=== PATIENT | female | born 1940 | race Caucasian/White ===

== ENCOUNTER 2018-09-03 17:41 | Inpatient (IN) ==
[2018-09-03] MEDS ORDERED: Ondansetron 4 MG/2 ML VIAL ONE (17:48)
[2018-09-03] MEDS ORDERED: Lidocaine 1% 20 ML MDV ID ONE (17:56)
[2018-09-03] MEDS ORDERED: *HR* FentaNYL (PF) 100 MCG/2 ML VIAL IVP ONE ×2 (18:00→19:16)
[2018-09-03] MEDS ORDERED: *HR* Propofol 200 MG/20 ML VIAL IVP ONE ×2 (18:05→19:17)
[2018-09-03] MEDS ORDERED: Ondansetron 4 MG/2 ML VIAL IVP ONE (18:08)
--- NOTE | 2018-09-03 18:13 | Emergency Department Note ---
Disposition Clinical Impression: Fracture, intertrochanteric, left femur Qualifiers: Encounter type: initial encounter Fracture type: closed Fracture alignment: displaced Qualified Code(s): S72.142A - Displaced intertrochanteric fracture of left femur, initial encounter for closed fracture Fracture of distal end of left ulna Qualifiers: Encounter type: initial encounter Fracture type: closed Fracture morphology: other fracture Qualified Code(s): S52.692A - Other fracture of lower end of left ulna, initial encounter for closed fracture Fracture of left distal radius Qualifiers: Encounter type: initial encounter Fracture type: closed Fracture morphology: Mcclure's Qualified Code(s): S52.542A - Mcclure's fracture of left radius, initial encounter for closed fracture Disposition: Admitted As Inpatient Condition: Undetermined Referrals: Oral Mesa MD [Primary Care Provider] - Forms: ED Satisfaction Letter Time of Disposition: 19:19 General Adult HPI - General Chief complaint: ED Fall Stated complaint: Fall Time Seen by Provider: 09/03/18 17:48 Source: patient, EMS Mode of arrival: EMS Limitations: no limitations Nursing Notes Reviewed: Yes Vital Signs Reviewed: Yes - History of Present Illness HPI Narrative: 78-year-old female with no previous medical history arrives to the emergency department after a mechanical fall one step. The patient return to the left w rist and hurt her wrist. Patient instructed her head with no loss of consciousness. The patient takes no anticoagulation. She is complaining of left wrist pain with a secondary deformity. Patient denies any other complaints at this time going paresthesias, abdominal pain, chest pain, difficulty breathing. The patient is lucid and answering portions appropriate. Patient denies any other complaints at this time. - Related Data Home Medications Medication Instructions Recorded Confirmed Sertraline [Zoloft] 50 mg PO DAILY 09/03/18 09/03/18 Allergies Allergy/AdvReac Type Severity Reaction Status Date / Time aspirin [ASA] AdvReac Abdominal Verified 04/19/16 20:38 Pain All systems ED: reviewed and negative except as stated. Constitutional: Denies: fever, chills, weakness ENT ED: Denies: dysphagia Cardiovascular: Denies: chest pain Respiratory: Denies: dyspnea Gastrointestinal: Denies: abdominal pain Genitourinary: Denies: urgency, dysuria Musculoskeletal: Reports: arthralgia, myalgia. Denies: back pain Integumentary: Reports: abrasion. Denies: rash Neurological: Denies: headache, numbness, paresthesias Past Medical History - Past Medical History Attestation: Yes The following information was validated with the patient. Source: patient, old records reviewed Medical history: Reports: no medical history Surgical history: Reports: non-contributory Psychiatric history: Reports: no psych history - Social History Smoking Status: Never smoker Alcohol use: Reports: none Drug use: Reports: none Physical Exam - General Limitations: no limitations General appearance: alert, in no apparent distress - Head Head exam: atraumatic, normocephalic, normal inspection - Eye Eye exam: Present: normal appearance, PERRL, EOMI - ENT ENT exam: normal exam, normal oropharynx, mucous membranes moist - Neck Neck exam: Present: normal inspection, full ROM, trachea midline - Chest Chest inspection: Present: normal inspection, symmetric chest wall rise - Respiratory Respiratory exam: Present: normal lung sounds bilaterally - Cardiovascular Cardiovascular exam: Present: regular rate, normal rhythm, normal heart sounds - Abdominal Exam Abdominal exam: Present: soft, Non-Tender. Absent: tenderness, distention, guarding, rebound, rigidity - Extremities Exam Extremities exam: Present: tenderness, normal capillary refill, other (Patient has a deformity of the left wrist with ecchymosis and swelling noted. Patient has tenderness along the left femur as well. No other acute abnormality is noted. Capillary refill less than 2 seconds. Radial pulses 2+ bilaterally.) - Neurological Exam Neurological exam: Present: alert, oriented X3, CN II-XII intact - Skin Skin exam: Present: warm, dry, intact Course - Consultations Consultation #1: I spoke with Dr. Dalton in orthopedic surgery who recommended admission to the hospitalist. See the patient consultation. No further recommend edition noted this time. Vital Signs Temperature 98.6 F 09/03/18 18:07 Pulse Rate 69 09/03/18 18:07 Respiratory Rate 20 09/03/18 18:07 Blood Pressure 147/56 09/03/18 18:07 O2 Sat by Pulse Oximetry 100 09/03/18 18:07 Temperature 98.6 F 09/03/18 18:07 Pulse Rate 67 09/03/18 19:02 Respiratory Rate 24 09/03/18 19:02 Blood Pressure 122/72 09/03/18 19:02 O2 Sat by Pulse Oximetry 100 09/03/18 19:02 Oxygen Delivery Oxygen Delivery Nasal Cannula Procedures - Orthopedic Fracture Reduction Fracture #1 Consent Obtained: written consent Time Out Performed: Yes Side: left Fracture Reduction Location: radius, ulna ASA Classification: CLASS II-Mild systemic disease Analgesia: procedural sedation Technique: direct manipulation, traction/counter-traction Post Reduction X-rays Demonstrate: acceptable reduction Post-reduction neuro exam: intact Post-reduction vascular exam: intact Splint Applied: Yes Patient Tolerated Procedure: well, no complications - Procedural Sedation Procedure: Fx reduction Indication: fracture/dislocation reduction Dietary Status: No solid food in preceding 4 hrs and no liquid in preceding 2 hrs H&P (including ROS) documented in medical record: Yes Previous reaction to sedatives/anesthetics: No Dentition: No loose teeth or bridges, full dentition Airway Assessment: Patient can open mouth completely, TMJ function normal, Micrognathia (under-bite, receding chin) absent, Neck with adequate range of motion Possible difficult airway: No ASA Classification: CLASS II-Mild systemic disease Plan of Care: Pt appropriate candidate for procedure/moderate/conscious sedation, Risks/benefits of procedure/sedation discussed w/ patient/family, If not NPO; Risk of intake outweiged by necessity to perform procedure Preparation: broom maker applied, pulse oximeter, capnometry used, sup plemental O2 applied, suction/airway equipment at bedside, IV secured IV Propofol Dose (mgs): 70 Patient Tolerated Procedure: well, no complications Complications: none Medical Decision Making - Lab Data Result diagrams: 09/03/18 18:45 Lab Results 09/03/18 09/03/18 Range/Units 18:45 18:45 WBC 8.9 (4.3-11.1) K/mcL RBC 3.84 (3.82-4.97) M/mcL Hgb 11.4 L (11.5-15.4) g/dL Hct 34.9 L (35.3-44.9) % MCV 90.9 (83.0-100.0) fL MCH 29.7 (28.0-33.3) pg MCHC 32.7 (31.6-35.5) g/dL RDW 14.6 H (11.5-14.5) % Plt Count 252 (140-400) K/mcL MPV 10.2 (9.4-12.4) fL Immature Gran % 0.5 (0-4) % Seg Neutrophils % 55.2 % Lymphocytes % 35.3 % Monocytes % 6.4 % Eosinophils % 1.6 % Basophils % 1.0 % Neutrophils # 4.9 (1.6-8.9) K/mcL Lymphocytes # 3.1 (0.6-4.6) K/mcL Monocytes # 0.6 (0.0-1.3) K/mcL Eosinophils # 0.1 (0.0-0.6) K/mcL Basophils # 0.1 (0.0-0.2) K/mcL PT 11.2 (9.4-12.1) Seconds INR 1.0
[2018-09-03 19:03] LABS: Basophils # 0.1 K/mcL (0.0-0.2); Eosinophils # 0.1 K/mcL (0.0-0.6); Eosinophils % 1.6 %; Hematocrit 34.9 % (35.3-44.9); Hemoglobin 11.4 g/dL (11.5-15.4); Immature Granulocytes % 0.5 % (0-4); Lymphocytes # 3.1 K/mcL (0.6-4.6); Lymphocytes % 35.3 %; Mean Corpuscular HGB Conc 32.7 g/dL (31.6-35.5); Mean Corpuscular Hemoglobin 29.7 pg (28.0-33.3); Mean Corpuscular Volume 90.9 fL (83.0-100.0); Mean Platelet Volume 10.2 fL (9.4-12.4); Monocytes # 0.6 K/mcL (0.0-1.3); Monocytes % 6.4 %; Neutrophils # 4.9 K/mcL (1.6-8.9); Platelet Count 252 K/mcL (140-400); Red Blood Count 3.84 M/mcL (3.82-4.97); Red Cell Distribution Width 14.6 % (11.5-14.5); Segmented Neutrophils % 55.2 %
[2018-09-03 19:11] LABS: Prothrombin Time 11.2 Seconds (9.4-12.1)
--- NOTE | 2018-09-03 19:18 | Emergency Department Note ---
Disposition Clinical Impression: Fracture, intertrochanteric, left femur, Fracture of distal end of left ulna, Fracture of left distal radius Disposition: Admitted As Inpatient Referrals: Oral Mesa MD [Primary Care Provider] - Forms: ED Satisfaction Letter General Adult HPI - General Chief complaint: ED Fall Stated complaint: Fall Time Seen by Provider: 09/03/18 17:48 Source: patient, EMS Mode of arrival: EMS Limitations: no limitations - History of Present Illness Pain Scale: 10 - Related Data Home Medications Medication Instructions Recorded Confirmed Sertraline [Zoloft] 50 mg PO DAILY 09/03/18 09/03/18 Allergies Allergy/AdvReac Type Severity Reaction Status Date / Time aspirin [ASA] AdvReac Abdominal Verified 04/19/16 20:38 Pain Constitutional: Denies: fever, chills, weakness ENT ED: Denies: dysphagia Cardiovascular: Denies: chest pain Respiratory: Denies: dyspnea Gastrointestinal: Denies: abdominal pain Genitourinary: Denies: urgency, dysuria Musculoskeletal: Reports: arthralgia, myalgia. Denies: back pain Integumentary: Reports: abrasion. Denies: rash Neurological: Denies: headache, numbness, paresthesias Past Medical History - Past Medical History Medical history: Reports: no medical history Surgical history: Reports: non-contributory Psychiatric history: Reports: no psych history - Social History Smoking Status: Never smoker Alcohol use: Reports: none Drug use: Reports: none Physical Exam - General Limitations: no limitations General appearance: alert, in no apparent distress Course Vital Signs Temperature 98.6 F 09/03/18 18:07 Pulse Rate 69 09/03/18 18:07 Respiratory Rate 20 09/03/18 18:07 Blood Pressure 147/56 09/03/18 18:07 O2 Sat by Pulse Oximetry 100 09/03/18 18:07 Temperature 98.6 F 09/03/18 18:07 Pulse Rate 67 09/03/18 19:02 Respiratory Rate 24 09/03/18 19:02 Blood Pressure 122/72 09/03/18 19:02 O2 Sat by Pulse Oximetry 100 09/03/18 19:02 Oxygen Delivery Oxygen Delivery Nasal Cannula Medical Decision Making - Medical Records Medical records reviewed: Yes I reviewed the patient's medical records. - Lab Data Lab results reviewed: Yes I reviewed the patient's lab results. Result diagrams: 09/03/18 18:45 Lab Results 09/03/18 Range/Units 18:45 WBC 8.9 (4.3-11.1) K/mcL RBC 3.84 (3.82-4.97) M/mcL Hgb 11.4 L (11.5-15.4) g/dL Hct 34.9 L (35.3-44.9) % MCV 90.9 (83.0-100.0) fL MCH 29.7 (28.0-33.3) pg MCHC 32.7 (31.6-35.5) g/dL RDW 14.6 H (11.5-14.5) % Plt Count 252 (140-400) K/mcL MPV 10.2 (9.4-12.4) fL Immature Gran % 0.5 (0-4) % Seg Neutrophils % 55.2 % Lymphocytes % 35.3 % Monocytes % 6.4 % Eosinophils % 1.6 % Basophils % 1.0 % Neutrophils # 4.9 (1.6-8.9) K/mcL Lymphocytes # 3.1 (0.6-4.6) K/mcL Monocytes # 0.6 (0.0-1.3) K/mcL Eosinophils # 0.1 (0.0-0.6) K/mcL Basophils # 0.1 (0.0-0.2) K/mcL - Radiology Data Radiology results reviewed: Yes I reviewed the patient's radiology results. Attestation Statement - Attestation Attestation: I examined this patient and my medical decision-making was reviewed with the Resident Physician. I agree with the documented findings, disposition and treatment plan as described except to the extent set forth below. 78-year-old female presents to ER for a fall. Patient was going down her basement steps when she missed the last up in the basement and fell landing on her left side injuring a left wrist and left hip. She denies any head or neck injury. She does not take blood thinners. Family members heard her and they called EMS. On exam and workup we found the patient has a comminuted fracture the distal radius and on her with significant displacement of the proximal fragments anteriorly. We were able to do a closed reduction on this without any competitions. Patient will be admitted as she also has a left trochanteric fracture. We did consult with orthopedics. We have started her preop workup flavia andrew. Procedure: Closed reduction of fracture dislocation of the left distal radius and ulna. I was able to supervise this entire procedure that was performed by Dr. Velasquez and Dr. Beasley. Patient did well. There are no complications. The volar splint was placed by the [facility]. Patient was neurovascular intact after splint placement.
[2018-09-03 19:20] LABS: BUN/Creatinine Ratio 22 (6-26); Blood Urea Nitrogen 15 mg/dL (8-23); Calcium 9.6 mg/dL (8.6-10.3); Carbon Dioxide 21 mEq/L (23-29); Chloride 106 mEq/L (98-107); Glucose 146 mg/dL (70-105); Osmolality,Calculated 289 (280-300); Potassium 3.8 mEq/L (3.5-5.1); Sodium 138 mEq/L (136-145); eGFR For Non-African Americans > 60 (> 60)
[2018-09-03 20:11] LABS: Bilirubin,Urine Negative (Negative); Blood,Urine Negative (Negative); Clarity,Urine Clear (Clear); Color,Urine Yellow (Yellow); Glucose,Urine (UA) Normal (Normal); Ketones,Urine 15 mg/dL (Negative); Leukocyte Esterase,Urine Negative (Negative); Nitrite,Urine Negative (Negative); PH,Urine 6.5 pH Units (5.0-8.0); Protein,Urine Negative (Neg-Trace); Specific Gravity,Urine 1.016 (1.010-1.025); Urobilinogen,Urine Normal (Normal)
[2018-09-04] MEDS ORDERED: Acetaminophen IV 500 MG/50 ML INFUS..BTL IVPB ONE (00:25)
[2018-09-04] MEDS ORDERED: Naloxone 0.4 MG/ML INJ IVP PRN ×2 (00:29→17:17)
[2018-09-04] MEDS: OXYCODONE Oral CONC 10 MG/0.5 ML ORAL.SYG SL PRN ×3 (00:57→22:01)
--- NOTE | 2018-09-04 01:55 | Internal Med History&Physical ---
Date of Encounter: 09/03/18 Time of Encounter: 23:30 Internal Medicine - H&P: HPI Chief complaint: Fall Admitted From: Home Plans for Post Hospital Care: Home History of present illness: Ms. Cummins is a 78 year old female with past medical history significant for acid reflux, left retinal artery occlusion, and anxiety who presents following mechanical fall at home while going down stairs and tripping on last step fal ling down a total of 1 stair. Did not strike head or lose consciousness. No anticoagulation use. Immediately had pain to left wrist and left leg following fall and was unable to ambulate due to the pain. Denies any other injury. Denies headache, dizziness, chest pain, shortness of breath, abdominal pain, numbness, tingling, bowel or bladder changes. ER obtained xrays of pelvis, left femur, left wrist, and left forearm which showed intertrochanteric fracture of the proximal left femur with mild foreshortening and comminution, and severely comminuted displaced foreshortened and angulated fractures of the distal left radius and ulna. A chest xray was also completed which showed no acute cardiopulmonary findings. ER consulted construction project mgr orthopedic Dr Dalton who agrees to see patient in consult in the morning. ER also completed closed reduction of fracture dislocation of the left radius and ulna in the ED. Patient is now pain free in left wrist following reduction but continues to have pain in left leg with movement. Patient follows regularly with PCP every six months and is due to see again in December. Lives at home with her and is very functional and independent as she helps care for him due to his history of stroke. Denies any other recent falls. Past Med Surg Social Fam HX - Past Medical History Additional medical history: acid reflux, retinal artery occlusion Psychiatric history: anxiety - Past Surgical History Surgical History: non-contributory Additional surgical history: benign breast tumor removed x2 - Social History Smoking Status: Never smoker Alcohol use: none Drug use: none - Family History Brother Hx Family Cancer: Yes Sister Living Status: Hx Family Respiratory Disorders: Yes (COPD) Internal Medicine - H&P: Meds Sertraline [Zoloft] 50 mg PO DAILY 09/03/18 [History] Allergy/AdvReac Type Severity Reaction Status Date / Time aspirin [ASA] AdvReac Abdominal Verified 04/19/16 20:38 Pain All Systems PM: A 10-system review of systems was performed and is negative for pertinent findings except as documented above in the HPI. - Constitutional Vitals: Temp Pulse Resp BP Pulse Ox 98.3 F 63 17 146/76 96 09/03/18 22:47 09/03/18 22:47 09/03/18 22:47 09/03/18 22:47 09/03/18 22:47 Exam: General: Alert and oriented. Skin:Normal color, no rash, no lesions. HEENT:Pupils equal, round and reactive. Cardiovascular:Normal S1 & S2, no rubs, murmurs or gallops. No JVD. Pulse regular. Lungs:Normal breath sounds, no wheezes or crackles. Abdomen:Soft, non-tender, no rigidity. Extremities:No edema, joint swelling, or clubbing. Tenderness to left lower extremity with movement, PMS intact. Left arm immobilized in sling and unable to assess wrist, motor and sensory intact with normal capillary refill. Neurological:Normal cognition and motor skills. Pulses:Carotid and radial pulses normal +2. Rest of the physical exam is non contributory. Internal Med - H&P Results - Labs CBC & Chem 7: 09/03/18 18:45 09/03/18 18:45 Labs: Short CBC 09/03/18 Range/Units 18:45 WBC 8.9 (4.3-11.1) K/mcL Hgb 11.4 L (11.5-15.4) g/dL Hct 34.9 L (35.3-44.9) % Plt Count 252 (140-400) K/mcL Neutrophils # 4.9 (1.6-8.9) K/mcL BMP 09/03/18 18:45 Sodium 138 Potassium 3.8 Chloride 106 Carbon Dioxide 21 L BUN 15 Creatinine 0.69 Glucose 146 H Calcium 9.6 Urine 09/03/18 Range/Units 19:50 Urine Color Yellow (Yellow) Urine Clarity Clear (Clear) Urine pH 6.5 (5.0-8.0) pH Units Ur Specific [place] 1.016 (1.010-1.025) Urine Protein Negative (Neg-Trace) mg/dL Urine Glucose (UA) Normal (Normal) mg/dL - Impressions ITS Impressions Forearm X-Ray 09/03/18 00:00 IMPRESSION: Intertrochanteric fracture of the proximal left femur with mild foreshortening and comminution. Severely comminuted displaced foreshortened and angulated fractures of the distal left radius and ulna. Given the severity of the findings, recommend thorough neurovascular evaluation of the left hand. Orthopedic consultation is recommended. D/ : / 09/03/2018 18:36:07 Aj Whitaker MD / moe Interpreting Provider: Aj Whitaker MD Femur X-Ray 09/03/18 17:49 IMPRESSION: Intertrochanteric fracture of the proximal left femur with mild foreshortening and comminution. Severely comminuted displaced foreshortened and angulated fractures of the distal left radius and ulna. Given the severity of the findings, recommend thorough neurovascular evaluation of the left hand. Orthopedic consultation is recommended. D/ : / 09/03/2018 18:36:07 Aj Whitaker MD / moe Interpreting Provider: Aj Whitaker MD Pelvis X-Ray 09/03/18 17:49 IMPRESSION: Intertrochanteric fracture of the proximal left femur with mild foreshortening and comminution. Severely comminuted displaced foreshortened and angulated fractures of the distal left radius and ulna. Given the severity of the findings, recommend thorough neurovascular evaluation of the left hand. Orthopedic consultation is recommended. D/ : / 09/03/2018 18:36:07 Aj Whitaker MD / moe Interpreting Provider: Aj Whitaker MD Wrist X-Ray 09/03/18 17:49 IMPRESSION: Intertrochanteric fracture of the proximal left femur with mild foreshortening and comminution. Severely comminuted displaced foreshortened and angulated fractures of the distal left radius and ulna. Given the severity of the findings, recommend thorough neurovascular evaluation of the left hand. Orthopedic consultation is recommended. D/ / 09/03/2018 18:36:07 Aj Whitaker MD / moe Interpreting Provider: Aj Whitaker MD Chest X-Ray 09/03/18 18:43 IMPRESSION: No acute cardiopulmonary findings. D/ / Rigoberto Teixeira / Rigoberto Teixeira Interpreting Provider: Rigoberto Teixeira - Assessment and Plan (1) Fracture of distal end of left ulna Current Visit: Yes Status: Acute Assessment and plan: Orthopedics consulted by ER, will see patient in a.m. Fracture reduced, splint placed and in sling. Pain control with PRN pain medications. NPO. Qualifiers: Encounter type: initial encounter Fracture type: closed Fracture morphology: other fracture Qualified Code(s): S52.692A - Other fracture of lower end of left ulna, initial encounter for closed fracture (2) Fracture of left distal radius Current Visit: Yes Status: Acute Assessment and plan: Orthopedics consulted by ER, will see patient in a.m. Fracture reduced, splint placed and in sling. Pain control with PRN pain medications. NPO. Qualifiers: Encounter type: initial encounter Fracture type: closed Fracture m orphology: unspecified fracture morphology Qualified Code(s): S52.502A - Unspecified fracture of the lower end of left radius, initial encounter for closed fracture (3) Fracture, intertrochanteric, left femur Current Visit: Yes Status: Acute Assessment and plan: Orthopedics consulted by ER, will see patient in a.m. Pain control with PRN pain medications. NPO. Qualifiers: Encounter type: initial encounter Fracture type: closed Qualified Code(s): S72.142A - Displaced intertrochanteric fracture of left femur, initial encounter for closed fracture (4) Fall Current Visit: Yes Status: Acute Assessment and plan: Mechanical fall on last step of stairway. No loss of consciousness, did not strike head. Denies any other injury than left wrist and left leg. Plan as stated above. Qualifiers: Encounter type: initial encounter Qualified Code(s): W19.XXXA - Unspecified fall, initial encounter (5) Decreased hemoglobin Current Visit: Yes Status: Acute Assessment and plan: Minimally decreased. Repeat labs in a.m. - Time Spent With Patient Total time spent is greater than 50% in coordination of care (as documented) at patient's floor/unit and/or counseling patient:
[2018-09-04 04:29] LABS: Basophils % 0.2 %; Hematocrit 33.6 % (35.3-44.9); Hemoglobin 10.8 g/dL (11.5-15.4); Immature Granulocytes % 0.4 % (0-4); Lymphocytes # 0.9 K/mcL (0.6-4.6); Lymphocytes % 8.9 %; Mean Corpuscular HGB Conc 32.1 g/dL (31.6-35.5); Mean Corpuscular Hemoglobin 29.3 pg (28.0-33.3); Mean Corpuscular Volume 91.3 fL (83.0-100.0); Mean Platelet Volume 9.8 fL (9.4-12.4); Monocytes # 0.5 K/mcL (0.0-1.3); Monocytes % 5.2 %; Neutrophils # 8.7 K/mcL (1.6-8.9); Platelet Count 208 K/mcL (140-400); Red Blood Count 3.68 M/mcL (3.82-4.97); Red Cell Distribution Width 14.5 % (11.5-14.5); Segmented Neutrophils % 85.3 %
[2018-09-04 04:45] LABS: BUN/Creatinine Ratio 23 (6-26); Blood Urea Nitrogen 15 mg/dL (8-23); Calcium 9.4 mg/dL (8.6-10.3); Carbon Dioxide 24 mEq/L (23-29); Chloride 105 mEq/L (98-107); Glucose 150 mg/dL (70-105); Osmolality,Calculated 290 (280-300); Potassium 3.7 mEq/L (3.5-5.1); Sodium 138 mEq/L (136-145); eGFR For Non-African Americans > 60 (> 60)
--- NOTE | 2018-09-04 07:01 | Orthopedic Consult Note ---
Date of Encounter: 09/04/18 Time of Encounter: 06:58 Assessment and Plan (1) Fracture, intertrochanteric, left femur Current Visit: Yes Status: Acute I did have a long discussion with the patient regarding the diagnosis. She does have a left displaced wrist fracture involving the distal radius and distal ulna. My recommendation is for open reduction and internal fixation at least of the distal radius. I do not anticipate fixing the ulna unless there is significant displacement or instability after fixing the radius. Regarding the left hip my recommendation is for reduction and medullary nail fixation in order to reduce and stabilize the left hip to allow for early mobilization and to help facilitate nursing care and provide pain control. The risks discussed included but were not limited to stiffness, bleeding, infection, blood clots, damage to neurovascular structures, tendons, ligaments, and bone. Also discussed was the risk of continued symptoms and possible need for further procedures. I did discuss the anesthesia risks including stroke, heart attack, and . I did discuss the reasonable, foreseeable postoperative course with the patient. The patient did wish to proceed and consent was obtained. I have reviewed each of the pertinent components of this chart and any other pertinent medical component(s) including but not limited to pertinent application of the chief complaint, history of present illness, current medic ation, medical history, allergies, family history, medical history, surgical history, social history, review of systems, vital signs, and any other portion of the pertinent patient medical record directly or indirectly involved with this patient care that is pertinent based on my medical decision process. MARQUITA Rapp Qualifiers: Encounter type: initial encounter Fracture type: closed Qualified Code(s): S72.142A - Displaced intertrochanteric fracture of left femur, initial encounter for closed fracture History of Present Illness HPI: Ms. Cummins is a 78 year old female currently admitted to the hospitalist. She did have a fall downstairs yesterday and sustained a left distal radius fracture, distal ulna fracture, and left basicervical hip fracture. At baseline she is quite functional and ambulate without a walker. She is quite active without significant medical comorbidity. She complains of isolated pain to the left hip and minimal achy and sharp pains of the left wrist. She underwent closed reduction of left wrist in the emergency department. Pain at the left hip and left wrist are worse with use and movement of his extremities and better with rest. She denies any numbness, tingling, or any other associated signs or symptoms. She denies any other pain or injuries. No other modifying factors. Past Med Surg Social Fam HX - Past Medical History Medical history: no medical history Additional medical history: acid reflux, retinal artery occlusion Psychiatric history: anxiety - Past Surgical History Surgical History: non-contributory Additional surgical history: benign breast tumor removed x2 - Social History Smoking Status: Never smoker Alcohol use: none Drug use: none - Family History Brother Hx Family Cancer: Yes Sister Living Status: Hx Family Respiratory Disorders: Yes (COPD) Medications and Allergies Sertraline [Zoloft] 50 mg PO DAILY 09/03/18 [History] Allergy/AdvReac Type Severity Reaction Status Date / Time aspirin [ASA] AdvReac Abdominal Verified 04/19/16 20:38 Pain All Systems Reviewed: Constitutional -The patient denies any fevers, chills, or feelings of illness Neurologic -The patient denies any numbness, tingling, or burning pains Physical Exam - Constitutional Vitals: Temp Pulse Resp BP Pulse Ox 98.2 F 71 16 99/57 94 09/04/18 03:08 09/04/18 03:08 09/04/18 03:08 09/04/18 03:08 09/04/18 03:08 Constitutional -Vitals reviewed -The patient is well developed and well nourished. -Mood is pleasant. -The patient is well groomed. Psychiatric -The patient is fully alert and oriented x 3. Respiratory: -Respiratory effort normal Abdomen: -Soft abdomen -Non tender -Non distended: Left upper extremity: -Sugar tong splint in place -Fingers distal to the splint are freely mobile, sensate, and well-perfused. -No pain with active or passive motion of the shoulder or the elbow. Right upper extremity: -No deformities. The overlying skin is intact. No obvious signs of acute trauma. -No tenderness to palpation throughout. -No significant pain with passive motion of the shoulder, elbow, wrist, and fingers within the limits of the bed. -Able to make an "OK" sign, cross the index and long fingers, and extend the thumb. -Sensation grossly intact to light touch throughout the median, radial, and ul michelle distributions. -Radial pulse is present; Fingers have good capillary refill. Left lower extremity: -The extremity is shortened and externally rotated. The overlying skin is intact. -There is tenderness in the groin region as well as the proximal lateral thigh. -I did not range the hip due to the known fracture. -No tenderness along the distal thigh, leg, ankle, foot, or toes. -Able to dorsiflex and plantarflex the ankle and toes. -Sensation is grossly intact to light touch throughout the sural, saphenous, superficial peroneal, and deep peroneal distributions. -Toes have good capillary refill. Right lower extremity: -No deformities. The overlying skin is intact. No obvious signs of acute trauma. -No tenderness to palpation throughout. -No pain with passive motion of the hip, knee, ankle, and toes within the limits of the bed. -No pain with axial loading of the thigh. -Able to dorsiflex and plantarflex the ankle and toes. -Sensation is grossly intact to light touch throughout the sural, saphenous, superficial peroneal, and deep peroneal distributions. -Toes have good capillary refill. Diagnostic Imaging: I did personally review and interpret x-rays of the left wrist, forearm, pelvis and femur which demonstrated a significantly displaced distal radius fracture with a minimally displaced distal ulna fracture. She also has a left basicervical femoral neck fracture. Results - Labs Result Diagrams: 09/04/18 03:53 09/04/18 03:53 Labs: Abnormal lab results RBC 3.68 M/mcL (3.82-4.97) L 09/04/18 03:53 Hgb 10.8 g/dL (11.5-15.4) L 09/04/18 03:53 Hct 33.6 % (35.3-44.9) L 09/04/18 03:53 Glucose 150 mg/dL (70-105) H 09/04/18 03:53 Urine Ketones 15 mg/dL (Negative) H 09/03/18 19:50 H & H 09/03/18 09/04/18 Range/Units 18:45 03:53 Hgb 11.4 L 10.8 L (11.5-15.4) g/dL Hct 34.9 L 33.6 L (35.3-44.9) % All other labs normal. Consult Discharge Plan - Plan Referrals: Oral Mesa MD [Primary Care Provider] -
[2018-09-04] MEDS ORDERED: *HR* FentaNYL (PF) 100 MCG/2 ML VIAL IVP PRN ×2 (13:02→17:17)
[2018-09-04] MEDS ORDERED: Bupivacaine/EPI 1:200k 0.5%PF 10 ML VIAL ONE (13:45)
--- NOTE | 2018-09-04 13:49 | Anesthesia Evaluation PreOp ---
Date of Encounter: 09/04/18 Time of Encounter: 14:16 - Past History Planned Operation: Left hip TFN, Left wrist ORIF Cardiac History: Denies any Significant Hx Pulmonary History: Denies Any Significant HX, Other (stop-bang score = 1) MECHANICAL SERVICE REPRESENTATIVE History: Other (anxiety) Other Medical History: GERD, Other (retinal artery occlusion) Anesthesia History: No Prior Anesthetic Complications, Past Anesthesia (breast biopsies) Alcohol Use: none Drug use: none Medications and Allergies Sertraline [Zoloft] 50 mg PO DAILY 09/03/18 [History] Aspirin [Lo-Dose Aspirin EC] 81 mg PO QPM 09/04/18 [History] Cholecalciferol (D-3) [Vitamin D] 1,000 unit PO DAILY 09/04/18 [History] Allergy/AdvReac Type Severity Reaction Status Date / Time aspirin [ASA] AdvReac See Verified 09/04/18 08:53 Comments - Meds/Allergy Pre-op Review Medications Reviewed: Yes Allergies Reviewed: Yes Beta Blockers on Current Med List: No Anesthesia Results - Labs 09/04/18 03:53 09/04/18 03:53 Anesthesia Exam Last Vital Signs Temp 99.0 F 09/04/18 10:18 Pulse 66 09/04/18 10:18 Resp 14 09/04/18 10:18 BP 110/66 09/04/18 10:18 Pulse Ox 93 09/04/18 10:18 Weight: 56 kg NPO (# of Hours): > 8 hrs - HEENT Pupil (Motor): Pupils equal, EOMI Mallampati: II Teeth: Normal Oral Opening: Greater than 3 - MECHANICAL SERVICE REPRESENTATIVE LOC: Oriented - Cardiac Rhythm: Regular Murmur: None - Pulmonary Breath Sounds: bilateral Clear Respiratory Effort: Symmetrical Anesthesia Assess/Plan ASA Score: 2 Level of consciousness: Cooperative Anesthetic Plan: General Monitoring Plan: Standard Monitors Recovery Plan: PACU
[2018-09-04] MEDS ORDERED: *HR* PHENYLEPHRINE 1,000 MCG/10 ML SYRINGE IVP ONE (13:59)
[2018-09-04] MEDS ORDERED: Lidocaine -MPF 2% 2 ML VIAL ONE (14:00)
[2018-09-04] MEDS ORDERED: *HR* FentaNYL (PF) 100 MCG/2 ML VIAL ONE ×2 (14:00→15:34)
[2018-09-04] MEDS ORDERED: *HR* Propofol 200 MG/20 ML VIAL IVP ONE (14:00)
[2018-09-04] MEDS ORDERED: *HR* OxyCODONE Immed Rel 5 MG TABLET PO PRN ×2 (14:17→17:17)
[2018-09-04] MEDS ORDERED: EPHEDrine 50 MG/ML VIAL ONE (14:43)
--- NOTE | 2018-09-04 15:44 | Internal Med Progress Note ---
Hospitalist Progress Note - Encounter Date of Encounter: 09/04/18 Time of Encounter: 15:43 - Subjective Interval History: Pt stated that she has pain of the left leg when move, I told her do not move the left leg until after the srugery. - Exam Vitals: Temp Pulse Resp BP Pulse Ox 99.0 F 66 14 110/66 93 09/04/18 10:18 09/04/18 10:18 09/04/18 10:18 09/04/18 10:18 09/04/18 10:18 Exam: General: Alert and oriented. Skin:Normal color, no rash, no lesions. HEENT:Pupils equal, round and reactive. Cardiovascular:Normal S1 & S2, no rubs, murmurs or gallops. No JVD. Pulse regular. Lungs:Normal breath sounds, no wheezes or crackles. Abdomen:Soft, non-tender, no rigidity. Extremities:No edema, joint swelling, or clubbing. Tenderness to left lower extremity with movement, PMS intact. Left arm immobilized in sling and unable to assess wrist, motor and sensory intact with normal capillary refill. Neurological:Normal cognition and motor skills. Pulses:Carotid and radial pulses normal +2. Rest of the physical exam is non contributory. - Summary of Assessment and Plan Summary of Assessment and Plan: 1) Fracture of distal end of left ulna Current Visit: Yes Status: Acute Assessment and plan: Orthopedics consulted by ER, will see patient in a.m. Fracture reduced, splint placed and in sling. Pain control with PRN pain medications. NPO. Qualifiers: Encounter type: initial encounter Fracture type: closed Fracture morphology: other fracture Qualified Code(s): S52.692A - Other fracture of lower end of left ulna, initial encounter for closed fracture (2) Fracture of left distal radius Current Visit: Yes Status: Acute Assessment and plan: Orthopedics consulted by ER, will see patient in a.m. Fracture reduced, splint placed and in sling. Pain control with PRN pain medications. NPO. Qualifiers: Encounter type: initial encounter Fracture type: closed Fracture morphology: unspecified fracture morphology Qualified Code(s): S52.502A - Unspecified fracture of the lower end of left radius, initial encounter for closed fracture (3) Fracture, intertrochanteric, left femur Current Visit: Yes Status: Acute Assessment and plan: Orthopedics consulted by ER, will see patient in a.m. Pain control with PRN pain medications. NPO. Qualifiers: Encounter type: initial encounter Fracture type: closed Qualified Code(s): S72.142A - Displaced intertrochanteric fracture of left femur, initial encounter for closed fracture (4) Fall Current Visit: Yes Status: Acute Assessment and plan: Mechanical fall on last step of stairway. No loss of consciousness, did not strike head. Denies any other injury than left wrist and left leg. Plan as stated above. Qualifiers: Encounter type: initial encounter Qualified Code(s): W19.XXXA - Unspecified fall, initial encounter (5) Decreased hemoglobin Current Visit: Yes Status: Acute Assessment and plan: Minimally decreased. Repeat labs in a.m. - Time Spent with Patient Total time spent is greater than 50% in coordination of care (as documented) at patient's floor/unit and/or counseling patient: Internal Medicine: Result - Labs CBC & Chem 7: 09/04/18 03:53 09/04/18 03:53 Labs: Short CBC 09/03/18 09/04/18 Range/Units 18:45 03:53 WBC 8.9 10.2 (4.3-11.1) K/mcL Hgb 11.4 L 10.8 L (11.5-15.4) g/dL Hct 34.9 L 33.6 L (35.3-44.9) % Plt Count 252 208 (140-400) K/mcL Neutrophils # 4.9 8.7 (1.6-8.9) K/mcL BMP 09/03/18 09/04/18 18:45 03:53 Sodium 138 138 Potassium 3.8 3.7 Chloride 106 105 Carbon Dioxide 21 L 24 BUN 15 15 Creatinine 0.69 0.66 Glucose 146 H 150 H Calcium 9.6 9.4 Urine 09/03/18 Range/Units 19:50 Urine Color Yellow (Yellow) Urine Clarity Clear (Clear) Urine pH 6.5 (5.0-8.0) pH Units Ur Specific [place] 1.016 (1.010-1.025) Urine Protein Negative (Neg-Trace) mg/dL Urine Glucose (UA) Normal (Normal) mg/dL - ABG Interpretation ABG results: PT/INR, D-dimer PT 11.2 Seconds (9.4-12.1) 09/03/18 18:45 - Impressions Impressions Forearm X-Ray 09/03/18 00:00 IMPRESSION: Intertrochanteric fracture of the proximal left femur with mild foreshortening and comminution. Severely comminuted displaced foreshortened and angulated fractures of the distal left radius and ulna. Given the severity of the findings, recommend thorough neurovascular evaluation of the left hand. Orthopedic consultation is recommended. D/ : / 09/03/2018 18:36:07 Aj Whitaker MD / moe Interpreting Provider: Aj Whitaker MD Femur X-Ray 09/03/18 17:49 IMPRESSION: Intertrochanteric fracture of the proximal left femur with mild foreshortening and comminution. Severely comminuted displaced foreshortened and angulated fractures of the distal left radius and ulna. Given the severity of the findings, recommend thorough neurovascular evaluation of the left hand. Orthopedic consultation is recommended. D/ : / 09/03/2018 18:36:07 Aj Whitaker MD / moe Interpreting Provider: Aj Whitaker MD Pelvis X-Ray 09/03/18 17:49 IMPRESSION: Intertrochanteric fracture of the proximal left femur with mild foreshortening and comminution. Severely comminuted displaced foreshortened and angulated fractures of the distal left radius and ulna. Given the severity of the findings, recommend thorough neurovascular evaluation of the left hand. Orthopedic consultation is recommended. D/ : / 09/03/2018 18:36:07 Aj Whitaker MD / moe Interpreting Provider: Aj Whitaker MD Wrist X-Ray 09/03/18 17:49 IMPRESSION: Intertrochanteric fracture of the proximal left femur with mild foreshortening and comminution. Severely comminuted displaced foreshortened and angulated fractures of the distal left radius and ulna. Given the severity of the findings, recommend thorough neurovascular evaluation of the left hand. Orthopedic consultation is recommended. D/ / 09/03/2018 18:36:07 Aj Whitkaer MD / moe Interpreting Provider: Aj Whitaker MD Chest X-Ray 09/03/18 18:43 IMPRESSION: No acute cardiopulmonary findings. D/ / Rigoberto Teixeira / Rigoberto Teixeira Interpreting Provider: Rigoberto Teixeira Fluoroscopy 09/04/18 14:35 IMPRESSION: Intraoperative imaging for ORIF of a left femoral intertrochanteric fracture without complication. D/ / Fadi Mcclure MD / Fadi Mcclure MD Interpreting Provider: Fadi Mcclure MD Consult Discharge Plan - Plan Referrals: Oral Mesa MD [Primary Care Provider] -
--- NOTE | 2018-09-04 17:25 | Electrocardiograph Report ---
[address] [place], [place] [address] Test Date: 2018-09-03 Pat Name: Pippa Cummins Department: [id number] Room: [facility] Gender: F Medical Records Director: : 1940 Requested By: Orville Mcclure Order Number: [id number] Reading MD: Noreen Bland Measurements Intervals [place] Rate: 55 P: 96 [place]: 191 QRS: 88 QRSD: 90 T: 85 QT: 468 QTc: 448 Interpretive Statements Sinus rhythm Borderline right axis deviation Electronically Signed On 09-04-2018 17:23:45 EDT by Noreen Bland
--- NOTE | 2018-09-04 18:15 | Orthopedic Operative Note ---
Date of procedure: 09/04/18 Procedure: OPERATIVE REPORT SURGEON: Brandon Davis MD PREOPERATIVE DIAGNOSIS: Left basicervical femoral neck fracture and left extra articular distal radius fracture POSTOPERATIVE DIAGNOSIS: Same PROCEDURE: Left hip nailing and open reduction and internal fixation of left distal radius ANESTHESIA: General anesthesia SPECIMENS: No specimens IMPLANTS: Synthes short TFN measuring 11 mm x 130 degrees; Skeletal Dynamics Geminus volar locking distal radius plate PREOPERATIVE NOTE The surgical plan was reviewed with the patient. The risks, benefits, alternatives, and potential complications of this procedure were discussed with the patient including injury to veins, arteries, nerves, tendons, ligaments, and bone. Also discussed were the risks of infection, bleeding, pain, blood clots, the possible need for a blood transfusion, the possible need for further procedures, heart attack, stroke, and . Additional risks include malunion, nonunion, hardware failure or hardware collapse. All of this was explained in simple terms, and the patient verbalized understanding and wished to proceed. Consent was given to proceed with surgery. PROCEDURE: The patient was seen in the preoperative holding area where the identify and the consent were confirmed. The left hip and left wrist was marked. Final questions were answered. The patient was brought back to the operating room. A huddle was performed with the patient and all vital surgical team members confirming patient identity, the correct procedure, and the correct operative site. Gen. anesthesia was administered. The patient was moved over to the fracture table and traction was placed on the left leg as well as internal rotation. The right lower extremity was lowered out of the way. X-rays confirmed anatomic reduction of the left hip. The operative extremity was prepped and draped in the usual sterile fashion. A surgical time out was performed immediately preceding the incision with all personnel in the operating room to confirm patient identity, the correct operative site and extremity, correct radiographic studies, availability of appropriate surgical equipment, and agreement on the planned procedure. An incision was made over the greater trochanter and dissection proceeded through the subcutaneous tissue and gluteal fascia. The guidewire was inserted and overdrilled. Reaming went up to 12.5 mm. There was good chatter. The definitive nail was placed in the proximal femur and a second incision was made, overdrilled, the definitive lag screw drilled into the head of the femur. A third incision was made to place a distal interlocking screw. The wounds were copiously irrigated and the deep fascia was closed with 0 Vicryl stitches followed by the skin with 3-0 Vicryl and radha. X-rays confirmed good alignment and good placement of the hardware. A sterile dressing was placed over the left hip. The sterile field was taken down and the patient was taken off the traction table which was converted back to a regular table. The left upper extremity was then prepped and draped in the usual sterile fashion. The left upper limb was exsanguinated and the tourniquet was inflated. A standard volar Franklyn incision was made and the FCR sheath was opened. FCR was reflected ulnarly and the floor of the sheath was opened and the radial artery was reflected radially and the FPL was reflected ulnarly. The radial septum was opened. The pronator was opened as well as the transitional fibrous zone and the space of Parona. The brachioradialis was taken down. The shaft of the radius was pronated out of the wound after taking down the dorsal periosteum. The fracture was reduced. The definitive plate was placed onto the bone and held with K wires. X-rays confirmed good position and the fracture was fixed proximally with cortical screws and distally with smooth pegs. Final x-ray shows good position of the fracture fragments and plate. There is good alignment of the ulna after fixation of the radius with good stability of the DRUJ. The wound was copiously irrigated and the incision was closed with interrupted nylon stitches. The tourniquet was deflated. A sterile dressing and sugar tong splint was applied. The instrument, sponge, and needle counts were correct after wound closure. POST OPERATIVE PLAN: Follow-up in 2 weeks for stitch and staple removal, weightbearing as tolerated on the bilateral lower extremity, nonweightbearing to the left upper extremity and use of a platform walker. Was there an insurance account assistant present: No Estimated blood loss (cc): 100
--- NOTE | 2018-09-04 18:19 | Orthopedics Progress Note ---
Date of Encounter: 09/04/18 Time of Encounter: 18:16 - Assessment and Plan (1) Fracture, intertrochanteric, left femur Current Visit: Yes Status: Acute Qualifiers: Encounter type: initial encounter Fracture type: closed Qualified Code(s): S72.142A - Displaced intertrochanteric fracture of left femur, initial encounter for closed fracture Subjective Interval history: S: Resting comfortably in bed O: Afebrile on the vital signs are stable Left upper extremity and postoperative splint; neurovascularly intact Left thigh dressing clean, dry, and intact; neurovascularly intact A: Post left hip nailing and ORIF of the left distal radius P: Joseph out tomorrow Weightbearing as tolerated on the bilateral lower extremities. Nonweightbearing to the left upper extremity. May use a platform walker to weight-bear to the left elbow. Digital motion exercises okay on the left. 2 doses of Ancef Allergic to aspirin; will need 4 weeks of DVT prophylaxis per the hospitalist; currently on heparin Objective Vital signs: Vital Signs Temp Pulse Resp BP Pulse Ox 09/04/18 17:57 97.7 F 77 16 113/66 97 09/04/18 17:22 98.3 F 79 20 126/64 98 09/04/18 17:02 77 18 132/65 100 09/04/18 16:52 97.7 F 79 18 129/65 100 09/04/18 16:42 81 20 133/68 100 09/04/18 16:32 98.3 F 87 16 131/68 99 09/04/18 10:18 99.0 F 66 14 110/66 93 09/04/18 06:56 98.4 F 70 14 116/65 93 09/04/18 03:08 98.2 F 71 16 99/57 94 09/03/18 22:47 98.3 F 63 17 146/76 96 09/03/18 21:28 97.6 F 59 16 147/70 100 09/03/18 21:03 16 135/62 09/03/18 19:26 18 100 09/03/18 19:20 65 14 132/58 99 09/03/18 19:02 67 24 122/72 100 Intake and Output 09/04/18 09/04/18 09/04/18 07:59 15:59 23:59 Output Total 500 / 500 300 / 300 100 / 100 Balance -500 / -500 -300 / -300 -100 / -100 Output: Estimated Blood Loss 100 / 100 Catheter 500 / 500 300 / 300 - Labs CBC & BMP: 09/04/18 03:53 09/04/18 03:53 Labs: Abnormal lab results RBC 3.68 M/mcL (3.82-4.97) L 09/04/18 03:53 Hgb 10.8 g/dL (11.5-15.4) L 09/04/18 03:53 Hct 33.6 % (35.3-44.9) L 09/04/18 03:53 Glucose 150 mg/dL (70-105) H 09/04/18 03:53 Urine Ketones 15 mg/dL (Negative) H 09/03/18 19:50 Consult Discharge Plan - Plan Additional Instructions: SNF DISCHARGE INSTRUCTIONS Dr. Davis PROCEDURE PERFORMED Reduction and fixation of left hip. ORIF of the left distal radius Incision care -Do not take the splint off the left upper extremity -Daily dressing changes to the left hip with dry gauze and either paper tape or medipore tape. -Avoid soaking wound in water (no hot tubs, bathtubs, swimming pools). -May shower after 2 weeks from surgery date. Carefully wash incision with soap and water. Gently pat it dry. Don't rub the incision, or apply creams or lotions. Sit on a shower stool when showering to keep from falling. Weight bearing status -Weightbearing as tolerated to the bilateral lower extremities. -Nonweightbearing to the left upper extremity -May use a platform walker and weightbearing through the left elbow Medications -Pain medication per the discharging medical doctor -No need for weeks of DVT prophylaxis per the hospitalist Other -Knee high ALICE hose 23 hours per day -Consult physical and occupational therapy for mobilization. -Up to chair with assistance at least twice per day. -Follow up with your primary care physician to discuss testing for bone mineral density. Follow-up with Dr. Davis at the office 2 weeks from the surgery date for a post operative evaluation. Call the office at [phone] to schedule appointment. Referrals: Oral Mesa MD [Primary Care Provider] -
[2018-09-05 01:20] LABS: Basophils % 0.2 %; Hematocrit 28.8 % (35.3-44.9); Immature Granulocytes % 0.3 % (0-4); Lymphocytes % 10.9 %; Mean Corpuscular HGB Conc 31.9 g/dL (31.6-35.5); Mean Corpuscular Hemoglobin 29.7 pg (28.0-33.3); Mean Corpuscular Volume 92.9 fL (83.0-100.0); Mean Platelet Volume 9.6 fL (9.4-12.4); Monocytes # 0.8 K/mcL (0.0-1.3); Monocytes % 8.8 %; Neutrophils # 7.6 K/mcL (1.6-8.9); Platelet Count 174 K/mcL (140-400); Red Cell Distribution Width 14.7 % (11.5-14.5); Segmented Neutrophils % 79.8 %
[2018-09-05 01:21] LABS: Hemoglobin 9.2 g/dL (11.5-15.4)
[2018-09-05 01:40] LABS: Alanine Aminotransferase 10 Units/L (7-52); Albumin 3.4 g/dL (3.5-5.7); Albumin/Globulin Ratio 1.3 (1.1-2.2); Alkaline Phosphatase 30 Units/L (34-104); Aspartate Amino Transferase 15 Units/L (13-39); BUN/Creatinine Ratio 19 (6-26); Bilirubin,Total 0.5 mg/dL (0.3-1.0); Blood Urea Nitrogen 12 mg/dL (8-23); Calcium 8.6 mg/dL (8.6-10.3); Carbon Dioxide 23 mEq/L (23-29); Chloride 105 mEq/L (98-107); Globulin 2.6 g/dL (2.4-3.5); Glucose 171 mg/dL (70-105); Osmolality,Calculated 286 (280-300); Potassium 3.9 mEq/L (3.5-5.1); Sodium 136 mEq/L (136-145); eGFR For Non-African Americans > 60 (> 60)
[2018-09-05] MEDS ORDERED: *HR* Heparin 5,000 UNIT/ML VIAL SQ SCH (06:00)
[2018-09-05] MEDS: OXYCODONE Oral CONC 10 MG/0.5 ML ORAL.SYG SL PRN ×3 (06:28→19:49)
[2018-09-05] MEDS: *HR* Heparin 5,000 UNIT/ML VIAL SQ SCH ×3 (06:29→22:32)
[2018-09-05] MEDS: Cholecalciferol (D-3) 1,000 UNIT TABLET PO SCH (07:53)
[2018-09-05] MEDS: Ondansetron 4 MG/2 ML VIAL IVP SCH ×4 (10:12→22:33)
--- NOTE | 2018-09-05 14:10 | Internal Med Progress Note ---
Hospitalist Progress Note - Encounter Date of Encounter: 09/05/18 Time of Encounter: 14:09 - Subjective Interval History: Pt feels well, no new issues. - Exam Vitals: Temp Pulse Resp BP Pulse Ox 98.9 F 79 16 101/64 93 09/05/18 10:43 09/05/18 10:43 09/05/18 10:43 09/05/18 10:43 09/05/18 10:43 Exam: General: Alert and oriented. Skin:Normal color, no rash, no lesions. HEENT:Pupils equal, round and reactive. Cardiovascular:Normal S1 & S2, no rubs, murmurs or gallops. No JVD. Pulse regular. Lungs:Normal breath sounds, no wheezes or crackles. Abdomen:Soft, non-tender, no rigidity. Extremities:No edema, joint swelling, or clubbing. Tenderness to left lower extremity with movement, PMS intact. Left arm immobilized in sling and unable to assess wrist, motor and sensory intact with normal capillary refill. Neurological:Normal cognition and motor skills. Pulses:Carotid and radial pulses normal +2. Rest of the physical exam is non contributory. - Summary of Assessment and Plan Summary of Assessment and Plan: 1) Fracture of distal end of left ulna Current Visit: Yes Status: Acute Assessment and plan: S/p surgical repair pt will need go to rehab. Qualifiers: Encounter type: initial encounter Fracture type: closed Fracture morphology: other fracture Qualified Code(s): S52.692A - Other fracture of lower end of left ulna, initial encounter for closed fracture (2) Fracture of left distal radius Current Visit: Yes Status: Acute Assessment and plan: s/p surgical repair Qualifiers: Encounter type: initial encounter Fracture type: closed Fracture morphology: unspecified fracture morphology Qualified Code(s): S52.502A - Unspecified fracture of the lower end of left radius, initial encounter for closed fracture (3) Fracture, intertrochanteric, left femur Current Visit: Yes Status: Acute Assessment and plan: s/p ORIF, doing well (4) Fall Current Visit: Yes Status: Acute Assessment and plan: Mechanical fall on last step of stairway. No loss of consciousness, did not strike head. Denies any other injury than left wrist and left leg. Plan as stated above. Qualifiers: Encounter type: initial encounter Qualified Code(s): W19.XXXA - Unspecified fall, initial encounter (5) Dispo: doing well, likeliy to rehab on or Friday with lovenox SQ for 4 weeks. TimeK: 35min . - Time Spent with Patient Total time spent is greater than 50% in coordination of care (as documented) at patient's floor/unit and/or counseling patient: Internal Medicine: Result - Labs CBC & Chem 7: 09/05/18 00:53 09/05/18 00:53 Labs: Short CBC 09/05/18 Range/Units 00:53 WBC 9.6 (4.3-11.1) K/mcL Hgb 9.2 L D (11.5-15.4) g/dL Hct 28.8 L (35.3-44.9) % Plt Count 174 (140-400) K/mcL Neutrophils # 7.6 (1.6-8.9) K/mcL BMP 09/05/18 00:53 Sodium 136 Potassium 3.9 Chloride 105 Carbon Dioxide 23 BUN 12 Creatinine 0.62 Glucose 171 H Calcium 8.6 Liver Function 09/05/18 Range/Units 00:53 Total Bilirubin 0.5 (0.3-1.0) mg/dL AST 15 (13-39) Units/L ALT 10 (7-52) Units/L Alkaline Phosphatase 30 L (34-104) Units/L Albumin 3.4 L (3.5-5.7) g/dL - ABG Interpretation ABG results: PT/INR, D-dimer PT 11.2 Seconds (9.4-12.1) 09/03/18 18:45 - Impressions Impressions Fluoroscopy 09/04/18 00:00 IMPRESSION: Intraprocedural fluoroscopic spot images as above. See separate procedure report for more information. D/ / 09/04/2018 20:03:54 Glenn Bowling MD / tracey Interpreting Provider: Glenn Bowling MD Fluoroscopy 09/04/18 14:35 IMPRESSION: Intraoperative imaging for ORIF of a left femoral intertrochanteric fracture without complication. D/ / Fadi Mcclure MD / Fadi Mcclure MD Interpreting Provider: Fadi Mcclure MD Consult Discharge Plan - Plan Additional Instructions: PENITENTIARY DISCHARGE INSTRUCTIONS Dr. Davis PROCEDURE PERFORMED Reduction and fixation of left hip. ORIF of the left distal radius Incision care -Do not take the splint off the left upper extremity -Daily dressing changes to the left hip with dry gauze and either paper tape or medipore tape. -Avoid soaking wound in water (no hot tubs, bathtubs, swimming pools). -May shower after 2 weeks from surgery date. Carefully wash incision with soap and water. Gently pat it dry. Don't rub the incision, or apply creams or lotions. Sit on a shower stool when showering to keep from falling. Weight bearing status -Weightbearing as tolerated to the bilateral lower extremities. -Nonweightbearing to the left upper extremity -May use a platform walker and weightbearing through the left elbow Medications -Pain medication per the discharging medical doctor -No need for weeks of DVT prophylaxis per the hospitalist Other -Knee high ALICE hose 23 hours per day -Consult physical and occupational therapy for mobilization. -Up to chair with assistance at least twice per day. -Follow up with your primary care physician to discuss testing for bone mineral density. Follow-up with Dr. Davis at the office 2 weeks from the surgery date for a post operative evaluation. Call the office at [phone] to schedule appointment. Referrals: Oral Mesa MD [Primary Care Provider] -
[2018-09-05] MEDS: Acetaminophen 325 MG TABLET PO PRN (22:33)
[2018-09-06] MEDS: Ondansetron 4 MG/2 ML VIAL IVP SCH ×3 (02:00→09:39)
[2018-09-06 02:07] LABS: Basophils % 0.5 %; Eosinophils # 0.1 K/mcL (0.0-0.6); Eosinophils % 1.1 %; Hematocrit 25.8 % (35.3-44.9); Hemoglobin 8.2 g/dL (11.5-15.4); Immature Granulocytes % 0.2 % (0-4); Lymphocytes # 2.2 K/mcL (0.6-4.6); Lymphocytes % 24.4 %; Mean Corpuscular HGB Conc 31.8 g/dL (31.6-35.5); Mean Corpuscular Hemoglobin 29.8 pg (28.0-33.3); Mean Corpuscular Volume 93.8 fL (83.0-100.0); Mean Platelet Volume 9.8 fL (9.4-12.4); Monocytes # 0.8 K/mcL (0.0-1.3); Monocytes % 8.8 %; Neutrophils # 5.7 K/mcL (1.6-8.9); Platelet Count 164 K/mcL (140-400); Red Blood Count 2.75 M/mcL (3.82-4.97); Red Cell Distribution Width 14.8 % (11.5-14.5)
[2018-09-06 02:28] LABS: Alanine Aminotransferase 7 Units/L (7-52); Albumin 3.2 g/dL (3.5-5.7); Albumin/Globulin Ratio 1.2 (1.1-2.2); Alkaline Phosphatase 29 Units/L (34-104); Aspartate Amino Transferase 13 Units/L (13-39); BUN/Creatinine Ratio 17 (6-26); Bilirubin,Total 0.5 mg/dL (0.3-1.0); Blood Urea Nitrogen 9 mg/dL (8-23); Calcium 8.6 mg/dL (8.6-10.3); Carbon Dioxide 24 mEq/L (23-29); Chloride 106 mEq/L (98-107); Globulin 2.6 g/dL (2.4-3.5); Glucose 128 mg/dL (70-105); Osmolality,Calculated 286 (280-300); Potassium 3.8 mEq/L (3.5-5.1); Sodium 138 mEq/L (136-145); Total Protein 5.8 g/dL (6.4-8.9); eGFR For Non-African Americans > 60 (> 60)
[2018-09-06] MEDS: *HR* Heparin 5,000 UNIT/ML VIAL SQ SCH ×3 (06:00→22:29)
[2018-09-06] MEDS: Acetaminophen 325 MG TABLET PO PRN (06:25)
[2018-09-06] MEDS: Aspirin Enteric Coated 81 MG Tablet PO SCH (09:39)
[2018-09-06] MEDS: Cholecalciferol (D-3) 1,000 UNIT TABLET PO SCH (09:39)
[2018-09-06] MEDS: OXYCODONE Oral CONC 10 MG/0.5 ML ORAL.SYG SL PRN ×2 (09:39→22:28)
--- NOTE | 2018-09-06 10:37 | Internal Med Progress Note ---
Hospitalist Progress Note - Encounter Date of Encounter: 09/06/18 Time of Encounter: 10:36 - Subjective Interval History: Pt feels well, wants to go to rehab Friday, I tod her that we need to wait for case management to set it up. - Exam Vitals: Temp Pulse Resp BP Pulse Ox 98 F 74 16 104/58 96 09/06/18 09:46 09/06/18 09:46 09/06/18 09:46 09/06/18 09:46 09/06/18 09:46 Exam: General: Alert and oriented. Skin:Normal color, no rash, no lesions. HEENT:Pupils equal, round and reactive. Cardiovascular:Normal S1 & S2, no rubs, murmurs or gallops. No JVD. Pulse regular. Lungs:Normal breath sounds, no wheezes or crackles. Abdomen:Soft, non-tender, no rigidity. Extremities:No edema, joint swelling, or clubbing. Tenderness to left lower extremity with movement, PMS intact. Left arm immobilized in sling and unable to assess wrist, motor and sensory intact with normal capillary refill. Neurological:Normal cognition and motor skills. Pulses:Carotid and radial pulses normal +2. Rest of the physical exam is non contributory. - Summary of Assessment and Plan Summary of Assessment and Plan: 1) Fracture of distal end of left ulna Current Visit: Yes Status: Acute Assessment and plan: S/p surgical repair pt will need go to rehab. Qualifiers: Encounter type: initial encounter Fracture type: closed Fracture morphology: other fracture Qualified Code(s): S52.692A - Other fracture of lower end of left ulna, initial encounter for closed fracture (2) Fracture of left distal radius Current Visit: Yes Status: Acute Assessment and plan: s/p surgical repair Qualifiers: Encounter type: initial encounter Fracture type: closed Fracture morphology: unspecified fracture morphology Qualified Code(s): S52.502A - Unspecified fracture of the lower end of left radius, initial encounter for closed fracture (3) Fracture, intertrochanteric, left femur Current Visit: Yes Status: Acute Assessment and plan: s/p ORIF, doing well (4) Fall Current Visit: Yes Status: Acute Assessment and plan: Mechanical fall on last step of stairway. No loss of consciousness, did not strike head. Denies any other injury than left wrist and left leg. Plan as stated above. Qualifiers: Encounter type: initial encounter Qualified Code(s): W19.XXXA - Unspecified fall, initial encounter (5) Dispo: doing well, likeliy to rehab on or Friday with lovenox SQ for 4 weeks. TimeK: 35min . - Time Spent with Patient Total time spent is greater than 50% in coordination of care (as documented) at patient's floor/unit and/or counseling patient: Internal Medicine: Result - Labs CBC & Chem 7: 09/06/18 01:49 09/06/18 01:49 Labs: Short CBC 09/06/18 Range/Units 01:49 WBC 8.8 (4.3-11.1) K/mcL Hgb 8.2 L (11.5-15.4) g/dL Hct 25.8 L (35.3-44.9) % Plt Count 164 (140-400) K/mcL Neutrophils # 5.7 (1.6-8.9) K/mcL BMP 09/06/18 01:49 Sodium 138 Potassium 3.8 Chloride 106 Carbon Dioxide 24 BUN 9 Creatinine 0.53 L Glucose 128 H Calcium 8.6 Liver Function 09/06/18 Range/Units 01:49 Total Bilirubin 0.5 (0.3-1.0) mg/dL AST 13 (13-39) Units/L ALT 7 (7-52) Units/L Alkaline Phosphatase 29 L (34-104) Units/L Albumin 3.2 L (3.5-5.7) g/dL - ABG Interpretation ABG results: PT/INR, D-dimer PT 11.2 Seconds (9.4-12.1) 09/03/18 18:45 Consult Discharge Plan - Plan Additional Instructions: HALF-WAY DISCHARGE INSTRUCTIONS Dr. Davis PROCEDURE PERFORMED Reduction and fixation of left hip. ORIF of the left distal radius Incision care -Do not take the splint off the left upper extremity -Daily dressing changes to the left hip with dry gauze and either paper tape or medipore tape. -Avoid soaking wound in water (no hot tubs, bathtubs, swimming pools). -May shower after 2 weeks from surgery date. Carefully wash incision with soap and water. Gently pat it dry. Don't rub the incision, or apply creams or lotions. Sit on a shower stool when showering to keep from falling. Weight bearing status -Weightbearing as tolerated to the bilateral lower extremities. -Nonweightbearing to the left upper extremity -May use a platform walker and weightbearing through the left elbow Medications -Pain medication per the discharging medical doctor -No need for weeks of DVT prophylaxis per the hospitalist Other -Knee high ALICE hose 23 hours per day -Consult physical and occupational therapy for mobilization. -Up to chair with assistance at least twice per day. -Follow up with your primary care physician to discuss testing for bone mineral density. Follow-up with Dr. Davis at the office 2 weeks from the surgery date for a post operative evaluation. Call the office at [phone] to schedule appointment. Referrals: Oral Mesa MD [Primary Care Provider] -
--- NOTE | 2018-09-06 19:19 | Orthopedics Progress Note ---
Date of Encounter: 09/05/18 Time of Encounter: 08:20 Subjective Principal diagnosis: Status post left hip nailing and left wrist open reduction internal fixatio Interval history: The patient is without complaints. Afebrile vital signs are stable. Incision is clean dry and intact. On left hip. Left distal upper extremity in splint. Neurovascularly intact with regard to bilateral lower extremities. Fires all digits and left hand with good capillary refill. Sensation intact. Fires all upper and lower extremity motor groups. Assessment :stable. Plan mobilize ,continue analgesics, discharge planning. Objective Vital signs: Vital Signs Temp Pulse Resp BP Pulse Ox 09/06/18 19:04 97.6 F 78 16 125/70 94 09/06/18 16:31 98.5 F 78 16 92/55 97 09/06/18 09:46 98 F 74 16 104/58 96 09/06/18 07:00 98.3 F 68 14 101/54 93 09/06/18 04:24 98.8 F 72 11 96/56 93 09/05/18 23:14 98.8 F 79 15 95/60 96 09/05/18 20:00 98.7 F 79 18 100/54 96 Intake and Output 09/06/18 09/06/18 09/06/18 07:59 15:59 23:59 Intake Total 120 / 120 Output Total 350 / 350 Balance -230 / -230 Intake: Oral 120 / 120 Output: Urine 350 / 350 Other: Meal Lunch Percent of Meal Consumed 10% Weight 65.1 kg Patient Weight 09/06/18 23:59 Weight 65.1 kg - Labs CBC & BMP: 09/06/18 01:49 09/06/18 01:49 Labs: Abnormal lab results RBC 2.75 M/mcL (3.82-4.97) L 09/06/18 01:49 Hgb 8.2 g/dL (11.5-15.4) L 09/06/18 01:49 Hct 25.8 % (35.3-44.9) L 09/06/18 01:49 RDW 14.8 % (11.5-14.5) H 09/06/18 01:49 Creatinine 0.53 mg/dL (0.60-1.20) L 09/06/18 01:49 Glucose 128 mg/dL (70-105) H 09/06/18 01:49 POC Glucose 107 mg/dL (70-99) H 09/06/18 07:44 Alkaline Phosphatase 29 Units/L (34-104) L 09/06/18 01:49 Serum Total Protein 5.8 g/dL (6.4-8.9) L 09/06/18 01:49 Albumin 3.2 g/dL (3.5-5.7) L 09/06/18 01:49 Urine Ketones 15 mg/dL (Negative) H 09/03/18 19:50 Consult Discharge Plan - Plan Additional Instructions: [facility] DISCHARGE INSTRUCTIONS Dr. Davis PROCEDURE PERFORMED Reduction and fixation of left hip. ORIF of the left distal radius Incision care -Do not take the splint off the left upper extremity -Daily dressing changes to the left hip with dry gauze and either paper tape or medipore tape. -Avoid soaking wound in water (no hot tubs, bathtubs, swimming pools). -May shower after 2 weeks from surgery date. Carefully wash incision with soap and water. Gently pat it dry. Don't rub the incision, or apply creams or lotions . Sit on a shower stool when showering to keep from falling. Weight bearing status -Weightbearing as tolerated to the bilateral lower extremities. -Nonweightbearing to the left upper extremity -May use a platform walker and weightbearing through the left elbow Medications -Pain medication per the discharging medical doctor -No need for weeks of DVT prophylaxis per the hospitalist Other -Knee high ALICE hose 23 hours per day -Consult physical and occupational therapy for mobilization. -Up to chair with assistance at least twice per day. -Follow up with your primary care physician to discuss testing for bone mineral density. Follow-up with Dr. Davis at the office 2 weeks from the surgery date for a post operative evaluation. Call the office at [phone] to schedule appointment. Referrals: Oral Mesa MD [Primary Care Provider] -
[2018-09-07 03:59] LABS: Basophils # 0.1 K/mcL (0.0-0.2); Basophils % 0.6 %; Eosinophils # 0.2 K/mcL (0.0-0.6); Eosinophils % 2.6 %; Hematocrit 24.3 % (35.3-44.9); Hemoglobin 7.7 g/dL (11.5-15.4); Immature Granulocytes % 0.4 % (0-4); Lymphocytes # 2.6 K/mcL (0.6-4.6); Lymphocytes % 33.6 %; Mean Corpuscular HGB Conc 31.7 g/dL (31.6-35.5); Mean Corpuscular Hemoglobin 30.2 pg (28.0-33.3); Mean Corpuscular Volume 95.3 fL (83.0-100.0); Mean Platelet Volume 9.4 fL (9.4-12.4); Monocytes # 0.6 K/mcL (0.0-1.3); Monocytes % 8.2 %; Neutrophils # 4.3 K/mcL (1.6-8.9); Platelet Count 195 K/mcL (140-400); Red Blood Count 2.55 M/mcL (3.82-4.97); Red Cell Distribution Width 14.4 % (11.5-14.5); Segmented Neutrophils % 54.6 %
[2018-09-07 04:17] LABS: Alanine Aminotransferase 6 Units/L (7-52); Albumin/Globulin Ratio 1.2 (1.1-2.2); Alkaline Phosphatase 32 Units/L (34-104); Aspartate Amino Transferase 12 Units/L (13-39); BUN/Creatinine Ratio 18 (6-26); Bilirubin,Total 0.4 mg/dL (0.3-1.0); Blood Urea Nitrogen 10 mg/dL (8-23); Calcium 8.5 mg/dL (8.6-10.3); Carbon Dioxide 27 mEq/L (23-29); Chloride 107 mEq/L (98-107); Globulin 2.6 g/dL (2.4-3.5); Glucose 114 mg/dL (70-105); Osmolality,Calculated 288 (280-300); Potassium 3.6 mEq/L (3.5-5.1); Sodium 139 mEq/L (136-145); Total Protein 5.6 g/dL (6.4-8.9); eGFR For Non-African Americans > 60 (> 60)
[2018-09-07] MEDS: *HR* Heparin 5,000 UNIT/ML VIAL SQ SCH ×3 (04:58→21:39)
[2018-09-07] MEDS: Acetaminophen 325 MG TABLET PO PRN (04:58)
[2018-09-07] MEDS: Aspirin Enteric Coated 81 MG Tablet PO SCH (09:32)
[2018-09-07] MEDS: Cholecalciferol (D-3) 1,000 UNIT TABLET PO SCH (09:32)
[2018-09-07] MEDS: OXYCODONE Oral CONC 10 MG/0.5 ML ORAL.SYG SL PRN (12:36)
--- NOTE | 2018-09-07 12:56 | Discharge Summary ---
- NOTES TO OUTPATIENT PROVIDER Notes to Outpatient Provider: ortho 2 wks, PCP 2-5 days Orders not resulted at time of discharge: Pending orders 09/04/18 XR wrist complete 3V LT [XR] Routine 09/04/18 14:35 XR hip complete LT [XR] Routine 09/08/18 04:00 Complete Blood Count [HEME] AM 0400 Comprehensive Metabolic Panel AM 0400 09/09/18 04:00 Complete Blood Count [HEME] AM 0400 Comprehensive Metabolic Panel AM 0400 Date of Encounter: 09/07/18 Time of Encounter: 12:54 - Discharge Diagnosis (1) Fracture, intertrochanteric, left femur Priority: Primary Status: Acute Qualifiers: Encounter type: initial encounter Fracture type: closed Qualified Code(s): S72.142A - Displaced intertrochanteric fracture of left femur, initial encounter for closed fracture Hospital course: Ms. Cummins is a 78 year old female with past medical history significant for acid reflux, left retinal artery occlusion, and anxiety who presents following mechanical fall at home while going down stairs and tripping on last step falling down a total of 1 stair. Did not strike head or lose consciousness. No anticoagulation use. Immediately had pain to left wrist and left leg following fall and was unable to ambulate due to the pain. Denies any other injury. Denies headache, dizziness, chest pain, shortness of breath, abdominal pain, numbness, tingling, bowel or bladder changes. ER obtained xrays of pelvis, left femur, left wrist, and left forearm which showed intertrochanteric fracture of the proximal left femur with mild foreshortening and comminution, and severely comminuted displaced foreshortened and angulated fractures of the distal left radius and ulna. Pt was kept in the hospital and pt underwent ORIF and surgical correction. Pt tolerated the procedure, no other issues. We are waiting for the director social welfare to set up rehab, then pt will be going. - Time Spent with Patient Total time spent providing and/or coordinating discharge services: - Discharge Medications Prescriptions: New Enoxaparin [Lovenox] 30 mg SQ DAILY #30 syr Continue Sertraline [Zoloft] 50 mg PO DAILY Cholecalciferol (D-3) [Vitamin D] 1,000 unit PO DAILY Aspirin [Lo-Dose Aspirin EC] 81 mg PO QPM Home Medications: Sertraline [Zoloft] 50 mg PO DAILY 09/03/18 [History] Aspirin [Lo-Dose Aspirin EC] 81 mg PO QPM 09/04/18 [History] Cholecalciferol (D-3) [Vitamin D] 1,000 unit PO DAILY 09/04/18 [History] Enoxaparin [Lovenox] 30 mg SQ DAILY #30 syr 09/07/18 [Rx] Allergies/Adverse Reactions: Allergy/AdvReac Type Severity Reaction Status Date / Time No Known Allergies Allergy Verified 09/05/18 14:36 Date of admission: 09/04/18 16:41 Primary care physician: Oral Mesa MD Consults: 09/04/18 00:24 Consult to Orthopedic Surgery [CONS] Routine Consulting Provider: [facility] Reason for Consult: ER called Dr Dalton for femur, radius, and ulna fractures. Will see patient in a.m. Call Completed: Yes 09/04/18 17:17 Consult to Physical Therapy [CONS] Routine Comment: Evaluate, develop and implement POC Reason for Consult: post hip surgery Does patient have active BEDREST order?: No Is patient medically & hemodynamically stable?: Yes Consult to Lean Engineer [CONS] Routine Reason for SW Consult: post -op hip fracture - Constitutional Vitals: Temp Pulse Resp BP Pulse Ox 98.1 F 88 16 95/54 94 09/07/18 11:33 09/07/18 11:33 09/07/18 11:33 09/07/18 11:33 09/07/18 11:33 Exam: General: Alert and oriented. Skin:Normal color, no rash, no lesions. HEENT:Pupils equal, round and reactive. Cardiovascular:Normal S1 & S2, no rubs, murmurs or gallops. No JVD. Pulse regular. Lungs:Normal breath sounds, no wheezes or crackles. Abdomen:Soft, non-tender, no rigidity. Extremities:No edema, joint swelling, or clubbing. Tenderness to left lower extremity with movement, PMS intact. Left arm immobilized in sling and unable to assess wrist, motor and sensory intact with normal capillary refill. Neurological:Normal cognition and motor skills. Pulses:Carotid and radial pulses normal +2. Rest of the physical exam is non contributory. - Patient Status Disposition: Transfer SNF Condition: Undetermined - Discharge Instructions Follow Up With: Oral Mesa MD [Primary Care Provider] - Additional Instructions: [facility] DISCHARGE INSTRUCTIONS Dr. Davis PROCEDURE PERFORMED Reduction and fixation of left hip. ORIF of the left distal radius Incision care -Do not take the splint off the left upper extremity -Daily dressing changes to the left hip with dry gauze and either paper tape or medipore tape. -Avoid soaking wound in water (no hot tubs, bathtubs, swimming pools). -May shower after 2 weeks from surgery date. Carefully wash incision with soap and water. Gently pat it dry. Don't rub the incision, or apply creams or lotions. Sit on a shower stool when showering to keep from falling. Weight bearing status -Weightbearing as tolerated to the bilateral lower extremities. -Nonweightbearing to the left upper extremity -May use a platform walker and weightbearing through the left elbow Medications -Pain medication per the discharging medical doctor -No need for weeks of DVT prophylaxis per the hospitalist Other -Knee high ALICE hose 23 hours per day -Consult physical and occupational therapy for mobilization. -Up to chair with assistance at least twice per day. -Follow up with your primary care physician to discuss testing for bone mineral density. Follow-up with Dr. Davis at the office 2 weeks from the surgery date for a post operative evaluation. Call the office at [phone] to schedule appointment.
--- NOTE | 2018-09-07 13:20 | Orthopedics Progress Note ---
Date of Encounter: 09/07/18 Time of Encounter: 07:00 - Assessment and Plan (1) Fracture, intertrochanteric, left femur Current Visit: Yes Status: Acute Qualifiers: Encounter type: initial encounter Fracture type: closed Qualified Code(s): S72.142A - Displaced intertrochanteric fracture of left femur, initial encounter for closed fracture Subjective Principal diagnosis: Status post left hip nailing and left wrist open reduction internal fixatio Interval history: S: Resting comfortably in bed O: Afebrile on the vital signs are stable Left upper extremity and postoperative splint; neurovascularly intact Left thigh wound is clean, dry, and intact; neurovascularly intact A: Post left hip nailing and ORIF of the left distal radius Acute blood loss anemia from surgery; asymptomatic. P: Weightbearing as tolerated on the bilateral lower extremities. Nonweightbearing to the left upper extremity. May use a platform walker to weight-bear to the left elbow. Digital motion exercises okay on the left. Waiting on d/c planning Objective Vital signs: Vital Signs Temp Pulse Resp BP Pulse Ox 09/07/18 11:33 98.1 F 88 16 95/54 94 09/07/18 07:16 97.5 F L 66 15 105/55 94 09/07/18 04:46 98.7 F 78 16 104/57 92 09/06/18 19:04 97.6 F 78 16 125/70 94 09/06/18 16:31 98.5 F 78 16 92/55 97 Intake and Output 09/06/18 09/07/18 09/07/18 23:59 07:59 15:59 Intake Total 240 / 240 Output Total 300 / 300 Balance -60 / -60 Intake: Oral 240 / 240 Output: Urine 300 / 300 Other: Meal Breakfast Percent of Meal Consumed 80% # Voids 1 - Labs CBC & BMP: 09/07/18 03:37 09/07/18 03:37 Labs: Abnormal lab results RBC 2.55 M/mcL (3.82-4.97) L 09/07/18 03:37 Hgb 7.7 g/dL (11.5-15.4) L 09/07/18 03:37 Hct 24.3 % (35.3-44.9) L 09/07/18 03:37 Creatinine 0.55 mg/dL (0.60-1.20) L 09/07/18 03:37 Glucose 114 mg/dL (70-105) H 09/07/18 03:37 POC Glucose 107 mg/dL (70-99) H 09/06/18 07:44 Calcium 8.5 mg/dL (8.6-10.3) L 09/07/18 03:37 AST 12 Units/L (13-39) L 09/07/18 03:37 ALT 6 Units/L (7-52) L 09/07/18 03:37 Alkaline Phosphatase 32 Units/L (34-104) L 09/07/18 03:37 Serum Total Protein 5.6 g/dL (6.4-8.9) L 09/07/18 03:37 Albumin 3.0 g/dL (3.5-5.7) L 09/07/18 03:37 Urine Ketones 15 mg/dL (Negative) H 09/03/18 19:50 Consult Discharge Plan - Plan Additional Instructions: [facility] DISCHARGE INSTRUCTIONS Dr. Davis PROCEDURE PERFORMED Reduction and fixation of left hip. ORIF of the left distal radius Incision care -Do not take the splint off the left upper extremity -Daily dressing changes to the left hip with dry gauze and either paper tape or medipore tape. -Avoid soaking wound in water (no hot tubs, bathtubs, swimming pools). -May shower after 2 weeks from surgery date. Carefully wash incision with soap and water. Gently pat it dry. Don't rub the incision, or apply creams or lotions. Sit on a shower stool when showering to keep from falling. Weight bearing status -Weightbearing as tolerated to the bilateral lower extremities. -Nonweightbearing to the left upper extremity -May use a platform walker and weightbearing through the left elbow Medications -Pain medication per the discharging medical doctor -No need for weeks of DVT prophylaxis per the hospitalist Other -Knee high ALICE hose 23 hours per day -Consult physical and occupational therapy for mobilization. -Up to chair with assistance at least twice per day. -Follow up with your primary care physician to discuss testing for bone mineral density. Follow-up with Dr. Davis at the office 2 weeks from the surgery date for a post operative evaluation. Call the office at [phone] to schedule appointment. Referrals: Oral Mesa MD [Primary Care Provider] - Prescriptions: Enoxaparin [Lovenox] 30 mg SQ DAILY #30 syr HYDROcodone/Acet 5/325 mg [Erick 5-325 mg] 1 tab PO Q4H PRN 7 Days #10 tab PRN Reason: Breakthrough Pain
[2018-09-07] MEDS: Ondansetron 4 MG/2 ML VIAL IVP SCH ×2 (16:39→21:42)
[2018-09-07] MEDS: *HR* HYDROcodone/Acet 5/325 mg TABLET PO PRN (21:40)
[2018-09-08] MEDS: Ondansetron 4 MG/2 ML VIAL IVP SCH ×5 (00:14→18:44)
[2018-09-08] MEDS: *HR* Heparin 5,000 UNIT/ML VIAL SQ SCH ×2 (06:28→13:51)
[2018-09-08 07:36] LABS: Basophils # 0.1 K/mcL (0.0-0.2); Basophils % 0.7 %; Eosinophils # 0.3 K/mcL (0.0-0.6); Eosinophils % 4.3 %; Hematocrit 23.3 % (35.3-44.9); Hemoglobin 7.4 g/dL (11.5-15.4); Immature Granulocytes % 0.4 % (0-4); Lymphocytes # 2.6 K/mcL (0.6-4.6); Lymphocytes % 38.4 %; Mean Corpuscular HGB Conc 31.8 g/dL (31.6-35.5); Mean Corpuscular Hemoglobin 29.7 pg (28.0-33.3); Mean Corpuscular Volume 93.6 fL (83.0-100.0); Mean Platelet Volume 9.4 fL (9.4-12.4); Monocytes # 0.6 K/mcL (0.0-1.3); Monocytes % 8.7 %; Neutrophils # 3.2 K/mcL (1.6-8.9); Platelet Count 247 K/mcL (140-400); Red Blood Count 2.49 M/mcL (3.82-4.97); Red Cell Distribution Width 14.4 % (11.5-14.5); Segmented Neutrophils % 47.5 %
[2018-09-08 07:53] LABS: Alanine Aminotransferase 8 Units/L (7-52); Albumin 3.1 g/dL (3.5-5.7); Albumin/Globulin Ratio 1.2 (1.1-2.2); Alkaline Phosphatase 36 Units/L (34-104); Aspartate Amino Transferase 14 Units/L (13-39); BUN/Creatinine Ratio 23 (6-26); Bilirubin,Total 0.5 mg/dL (0.3-1.0); Blood Urea Nitrogen 11 mg/dL (8-23); Calcium 8.8 mg/dL (8.6-10.3); Carbon Dioxide 29 mEq/L (23-29); Chloride 106 mEq/L (98-107); Globulin 2.6 g/dL (2.4-3.5); Glucose 115 mg/dL (70-105); Osmolality,Calculated 288 (280-300); Potassium 3.6 mEq/L (3.5-5.1); Sodium 139 mEq/L (136-145); Total Protein 5.7 g/dL (6.4-8.9); eGFR For Non-African Americans > 60 (> 60)
[2018-09-08] MEDS: *HR* HYDROcodone/Acet 5/325 mg TABLET PO PRN ×2 (08:03→18:43)
[2018-09-08] MEDS: Aspirin Enteric Coated 81 MG Tablet PO SCH (08:03)
[2018-09-08] MEDS: Cholecalciferol (D-3) 1,000 UNIT TABLET PO SCH (08:03)
--- NOTE | 2018-09-08 11:56 | Orthopedics Progress Note ---
Date of Encounter: 09/08/18 Time of Encounter: 11:55 - Assessment and Plan (1) Fracture, intertrochanteric, left femur Current Visit: Yes Status: Acute Qualifiers: Encounter type: initial encounter Fracture type: closed Qualified Code(s): S72.142A - Displaced intertrochanteric fracture of left femur, initial encounter for closed fracture Subjective Principal diagnosis: Status post left hip nailing and left wrist open reduction internal fixatio Interval history: S: Resting comfortably in bed O: Afebrile on the vital signs are stable Left upper extremity and postoperative splint; neurovascularly intact Left thigh wound is clean, dry, and intact; neurovascularly intact A: Post left hip nailing and ORIF of the left distal radius Acute blood loss anemia from surgery; asymptomatic. P: Weightbearing as tolerated on the bilateral lower extremities. Nonweightbearing to the left upper extremity. May use a platform walker to weight-bear to the left elbow. Digital motion exercises okay on the left. We will transfuse 1 unit of packed red blood cells due to hemoglobin and concomitant blood pressures. Waiting on d/c planning Objective Vital signs: Vital Signs Temp Pulse Resp BP Pulse Ox 09/08/18 10:33 98.6 F 69 18 93/53 94 09/08/18 06:24 98.0 F 68 14 99/59 94 09/08/18 03:15 97.7 F 66 16 99/54 94 09/07/18 22:51 98.4 F 71 17 108/66 95 09/07/18 18:48 98.0 F 86 16 96/60 95 09/07/18 15:48 97.9 F 70 14 99/63 94 Intake and Output 09/07/18 09/08/18 09/08/18 23:59 07:59 15:59 Intake Total 320 / 320 150 / 150 240 / 240 Output Total 300 / 300 Balance 20 / 20 150 / 150 240 / 240 Intake: Oral 320 / 320 150 / 150 240 / 240 Output: Urine 300 / 300 Other: Meal Dinner Breakfast Percent of Meal Consumed 100% 50% Weight 65.2 kg Patient Weight 09/08/18 23:59 Weight 65.2 kg - Labs CBC & BMP: 09/08/18 07:02 09/08/18 07:02 Labs: Abnormal lab results RBC 2.49 M/mcL (3.82-4.97) L 09/08/18 07:02 Hgb 7.4 g/dL (11.5-15.4) L 09/08/18 07:02 Hct 23.3 % (35.3-44.9) L 09/08/18 07:02 Creatinine 0.47 mg/dL (0.60-1.20) L 09/08/18 07:02 Glucose 115 mg/dL (70-105) H 09/08/18 07:02 POC Glucose 107 mg/dL (70-99) H 09/06/18 07:44 Serum Total Protein 5.7 g/dL (6.4-8.9) L 09/08/18 07:02 Albumin 3.1 g/dL (3.5-5.7) L 09/08/18 07:02 Urine Ketones 15 mg/dL (Negative) H 09/03/18 19:50 Consult Discharge Plan - Plan Additional Instructions: LONG-TERM DISCHARGE INSTRUCTIONS Dr. Davis PROCEDURE PERFORMED Reduction and fixation of left hip. ORIF of the left distal radius Incision care -Do not take the splint off the left upper extremity -Daily dressing changes to the left hip with dry gauze and either paper tape or medipore tape. -Avoid soaking wound in water (no hot tubs, bathtubs, swimming pools). -May shower after 2 weeks from surgery date. Carefully wash incision with soap and water. Gently pat it dry. Don't rub the incision, or apply creams or lotions. Sit on a shower stool when showering to keep from falling. Weight bearing status -Weightbearing as tolerated to the bilateral lower extremities. -Nonweightbearing to the left upper extremity -May use a platform walker and weightbearing through the left elbow Medications -Pain medication per the discharging medical doctor -No need for weeks of DVT prophylaxis per the hospitalist Other -Knee high ALICE hose 23 hours per day -Consult physical and occupational therapy for mobilization. -Up to chair with assistance at least twice per day. -Follow up with your primary care physician to discuss testing for bone mineral density. Follow-up with Dr. Davis at the office 2 weeks from the surgery date for a post operative evaluation. Call the office at [phone] to schedule appointment. Referrals: Oral Mesa MD [Primary Care Provider] - Prescriptions: Enoxaparin [Lovenox] 30 mg SQ DAILY #30 syr HYDROcodone/Acet 5/325 mg [[place] 5-325 mg] 1 tab PO Q4H PRN 7 Days #10 tab PRN Reason: Breakthrough Pain
[2018-09-08] MEDS ORDERED: 0.9 % Sodium Chloride 250 ML IVC SCH (12:15)
[2018-09-08 17:31] VITALS: BP 108/60
[2018-09-08] MEDS ORDERED: Ondansetron 4 MG/2 ML VIAL IVP PRN (20:00)
== END 2018-09-08 19:48 | DRG 481 ==
LOC: 3NENU 17:41 → EMEROOARM 17:41 → SUATTDRO 20:14 → 3NENU 21:05
PROVIDERS: ADMIT Internal Medicine; ATTEND Internal Medicine